=== PATIENT | female | born 1980 | race Asian ===

== ENCOUNTER 2017-06-30 10:33 | Emergency (ER) | payer BC, OTHER ==
[~2017-06-30] VITALS: Wt 75.7 kg
[2017-06-30] MEDS ORDERED: IBUPROFEN 800 MG TAB PO ONE (12:30)
--- NOTE | 2017-06-30 12:36 | RADRPT ---
PROCEDURE: XR Chest. CLINICAL INDICATION: Shortness of breath TECHNIQUE: Single portable view of the chest was obtained COMPARISON: No priors for comparison FINDINGS: The trachea is midline. The cardiac silhouette and pulmonary vascularity are within normal limits. T he lungs are clear. The costophrenic angles are sharp. IMPRESSION: 1. No evidence of acute cardiopulmonary disease. RPTAT: AAPP Physician Barbara Date Time Electronically viewed and signed by Doc Ragland Physician on 06/30/2017 12:35 KATELYNN/
--- NOTE | 2017-06-30 12:39 | ERD ---
ER Documentation Chief Complaint Chief Complaint COUGH, BODYACHES, FEVER, ONSET 3 DAYS HPI This is a 36-year-old female who presents the emergency department today with her complaining of cough, fever, body aches for the past 3 days. States that she took ibuprofen last night. States she also has a headache. Denies any vomiting or diarrhea. States that child has similar symptoms and child was sick first. ROS All systems reviewed and are negative except as per history of present illness. Medications Home Meds Active Scripts Guaifenesin-Dextromethorphan* (Robitussin* DM) 100MG/10MG/5ML Syrup, 10 ML PO Q6H Y for COUGH for 5 Days, ML Prov:MARCIA PINEDAC 06/30/17 Acetaminophen* (Tylophen*) 500 Mg Capsule, 1 CAP PO Q6H Y for PAIN AND OR ELEVATED TEMP, #30 CAP Prov:MARCIA PINEDAC 06/30/17 Ibuprofen* (Motrin*) 600 Mg Tab, 600 MG PO Q6, #30 TAB Prov:MARCIA PINEDAC 06/30/17 Oseltamivir Phosphate* (Tamiflu*) 75 Mg Capsule, 75 MG PO BID for 5 Days, CAP Prov:MARCIA PINEDAC 06/30/17 Allergies Allergies: Coded Allergies: erythromycin base (Verified Allergy, Intermediate, rash, 06/30/17) PMhx/Soc Medical and Surgical Hx: pt denies Medical Hx, pt denies Surgical Hx Hx Alcohol Use: No Hx Substance Use: No Hx Tobacco Use: No Smoking Status: Never smoker Physical Exam Vitals Vital Signs Date Time Temp Pulse Resp B/P Pulse Ox O2 Delivery O2 Flow Rate FiO2 06/30/17 10:39 98.3 86 18 123/77 100 Physical Exam Const: NAD Head: Atraumatic Eyes: Normal Conjunctiva ENT: TMs normal. Nose no drainage. Throat no erythema no exudate. Neck: Full range of motion..~ No meningismus. Resp: Clear to auscultation bilaterally Cardio: Regular rate and rhythm, no murmurs Abd: Soft, non tender, non distended. Normal bowel sounds Skin: No petechiae or rashes Neur: Awake and alert Psych: Normal Mood and Affect Results 24 hrs Current Medications Medications (Trade) Dose Ordered Sig/Leisa Route PRN Reason Start Time Stop Time Status Last Admin Dose Admin Ibuprofen (Motrin) 800 mg ONCE ONCE PO 06/30/17 12:30 06/30/17 12:31 DC 06/30/17 12:15 DIAGNOSTIC IMAGING REPORT Patient: DORA REEDER : 1980 Age: 36 Sex: F MR #: [id number] DOS: 06/30/17 1207 Ordering MD: MARCIA PINEDA PA-C Location: [facility] Room/Bed: PROCEDURE: XR Chest. CLINICAL INDICATION: Shortness of breath TECHNIQUE: Single portable view of the chest was obtained COMPARISON: No priors for comparison FINDINGS: The trachea is midline. The cardiac silhouette and pulmonary vascularity are within normal limits. The lungs are clear. The costophrenic angles are sharp. IMPRESSION: 1. No evidence of acute cardiopulmonary disease. RPTAT: AAPP Physician Barbara Date Time Electronically viewed and signed by Physician Barbara on 06/30/2017 12:35 JL/ CC: MARCIA PINEDA PA-C RUN DATE: 06/30/17 [facility] PAGE 1 RUN TIME: [id number] [place] [address] Adair Giordano M.D. [employer] RAYMOND#: [id number] Name: DORA REEDER Age/Sex: 36/F Attend Dr: CATALINA SCOTT Acct: [id number] MR# : [id number] : 1980 Location: [facility] Admit: 06/30/17 Specimen: [id number] Status: Complete Jesse: 06/30/17 Rcvd: 06/30 Source: [facility]ams Descrip: Procedure Result Microbiology INFLUENZA A & B BY EIA Final INFLU A&B BY EIA INFLUENZA A NEGATIVE (Ref Range Neg) INFLUENZA B NEGATIVE (Ref Range Neg) ................................................................................ ............ Flags: Critical Hi = *H Critical Lo = *L Microbiology Abnormal = * Abnormal Hi = H Abnormal Lo = L Blood Bank Abnormal = * Susceptability Flags: S = Sensitive R = Resistant I = Intermediate END OF REPORT Procedures/MDM This is a 36-year-old female who presents emergency department today for headache, body aches, cough and fever for the past 3 days. She is here in the emergency department in the same room with her son who has similar symptoms. was concerned because he indicated that frequently has a cough is concerned about that therefore I did obtain a chest x-ray and influenza. I do have low suspicion for sepsis, severe acute bacterial infection. Chest x-ray is unremarkable. Low suspicion for pneumonia, PE, abscess, pleural effusion, pneumothorax. Influenza A and B is negative Symptoms at this time is consistent with influenza-like symptoms. Patient's son tested positive for influenza A here in the emergency department and given this I will offer to give the patient a prescription for Tamiflu however explained the risks and benefits of taking it and I will leave it up to them. Patient will also be given a prescription for Tylenol, Motrin, Robitussin. At this time the patient is stable for discharge and outpatient management. Patient should follow up with their PCP in the next 1-2 days. They may return to the emergency department sooner for any persistent or worsening of symptoms. Patient and understood and agreed with the plan. Discussed the patient with Dr. Murphy and she is in agreement with the plan. Departure Diagnosis: Primary Impression: Influenza-like symptoms Condition: MARCIA Stone PA-C Jun 30, 2017 12:39
[2017-06-30] MEDS ORDERED: OSLT75C PO (13:15)
[2017-06-30] MEDS ORDERED: ACET500C5 PO (13:15)
[2017-06-30] MEDS ORDERED: IBUP-1542 PO (13:15)
[2017-06-30] MEDS ORDERED: UDROBDM PO (13:16)
== END 2017-06-30 13:33 | disposition home or self-care (01) ==
LOC: FTE 10:33
DX: R05 Cough (principal); R51 Headache; R50.9 Fever, unspecified
CPT/HCPCS: 71010; 87400; 99284; Z7610

== ENCOUNTER 2017-07-12 11:28 | Emergency (ER) | payer BC ==
[~2017-07-12] VITALS: Ht 157.5 cm; Wt 76.2 kg
[~2017-07-12 11:28] MED LIST: ACET500C5 PO; IBUP-1542 PO; OSLT75C PO; UDROBDM PO
[2017-07-12 11:30] VITALS: Ht 157.5 cm; Wt 76.2 kg
[2017-07-12 14:28] LABS: BASOPHILS % 0.3 % (0.0-2.0); EOSINOPHILS # 0.3 10^3/ul (0.0-0.5); EOSINOPHILS % 4.8 % (0.0-7.0); HEMATOCRIT 32.1 % (37.0-47.0); HEMOGLOBIN 9.9 g/dl (12.0-16.0); LYMPHOCYTES # 2.1 10^3/ul (0.8-2.9); LYMPHOCYTES % 35.9 % (15.0-51.0); MEAN CORPUSCULAR HEMOGLOBIN 22.1 pg (29.0-33.0); MEAN CORPUSCULAR HGB CONC 30.8 g/dl (32.0-37.0); MEAN CORPUSCULAR VOLUME 71.8 fl (82.0-101.0); MEAN PLATELET VOLUME 9.5 fl (7.4-10.4); MONOCYTE # 0.5 10^3/ul (0.3-0.9); MONOCYTES % 8.5 % (0.0-11.0); NEUTROPHIL # 2.9 10^3/ul (1.6-7.5); NEUTROPHILS % 50.3 % (39.0-77.0); PLATELET COUNT 282 10^3/UL (140-415); RED BLOOD COUNT 4.47 10^6/ul (4.20-5.40); WHITE BLOOD COUNT 5.8 10^3/ul (4.8-10.8)
[2017-07-12 14:46] LABS: ADD UMIC YES; UR ASCORBIC ACID NEGATIVE (NEGATIVE); UR BACTERIA FEW /HPF (NONE SEEN); UR BILIRUBIN (Dip) NEGATIVE (NEGATIVE); UR BLOOD (Dip) 1+ mg/dL (NEGATIVE); UR BUDDING YEAST FEW /HPF (NONE SEEN); UR CLARITY CLEAR (CLEAR); UR COLOR STRAW (YELLOW); UR GLUCOSE (Dip) NEGATIVE (NEGATIVE); UR KETONES (Dip) NEGATIVE (NEGATIVE); UR LEUKOCYTE ESTERASE (Dip) 3+ Leu/ul (NEGATIVE); UR NITRITE (Dip) NEGATIVE (NEGATIVE); UR RBC 11 /HPF (0-5); UR SPECIFIC GRAVITY (Dip) 1.006 (1.003-1.030); UR SQUAMOUS EPITHELIAL CELL FEW /HPF (FEW); UR TOTAL PROTEIN (Dip) NEGATIVE (NEGATIVE); UR UROBILINOGEN (Dip) NEGATIVE (NEGATIVE)
[2017-07-12 14:51] LABS: ALBUMIN 4.1 g/dl (3.3-4.9); ALBUMIN/GLOBULIN RATIO 1.41; CALCIUM 8.5 mg/dl (8.4-10.2); CREATININE 0.65 mg/dl (0.44-1.00); POTASSIUM 4.4 mmol/L (3.5-5.1)
--- NOTE | 2017-07-12 14:55 | RADRPT ---
PROCEDURE: Pelvic ultrasound. CLINICAL INDICATION: Pelvic pain TECHNIQUE: Simmons scale, color doppler, spectral doppler ultrasound of the pelvis was performed with transabdominal and transvaginal transducers. COMPARISON: No prior studies are available for comparison. FINDINGS: Uterus: Position: Anteverted. 2.5 cm intramural fibroid of the ventral uterine body abuts the endometrium. Normal appearance of the endometrium. Ovaries: Normal appearing right ovary. Normal appearing left ovary. No adnexal masses. 1.5 cm right ovarian dominant follicle para Free fluid: Trace amount. Measurements: Endometrium (cm): 0.9 Uterus (cm): 9.9 x 5.5 x 7.5 Right ovary (cm): 3.0 x 1.7 x 1.4 Left ovary (cm): 3.2 x 1.4 x 2.0 IMPRESSION: 2.5 cm intramural fibroid of the ventral uterine body abuts the endometrium. Otherwise normal examination. RPTAT: AADD .Dl Hendrickson MD, MD Date Time Electronically viewed and signed by .Dl Hendrickson MD, on 07/12/2017 14:54 .B/
[2017-07-12] MEDS ORDERED: IBUP-1542 PO (15:31)
[2017-07-12] MEDS ORDERED: NITR-58 PO (15:31)
[2017-07-12 15:44] VITALS: BP 127/82; PULSE 83; RESP 16; TEMP 97.9
--- NOTE | 2017-07-12 15:48 | ERD ---
ER Documentation Chief Complaint Chief Complaint LOWER ABD PAIN WITH VOMITING X 1 WEEK HPI 36-year-old female complaining of lower abdominal pain 1 week. Patient states that pain comes and goes, usually lasts about 2 hours each. The pain is sharp, standing up makes the pain worse, sitting down makes it better. Patient reports occasional vomiting in the last week. She took ibuprofen at home for pain, last dose was last night. Patient reports temperature at home 100.3. Patient is , with 2 living children. LMP 05/30/2017. Patient was seen by PCP 2 days ago. Her PCP sent her to the ER for further evaluation. Denies cough or shortness breath. Denies dysuria. Denies vaginal bleeding. Patient has history of appendectomy 20 years ago. ROS All systems reviewed and are negative except as per history of present illness. Medications Home Meds Active Scripts Nitrofurantoin Monohyd Macrocr* (Macrobid*) 100 Mg Capsr, 100 MG PO BID for 7 Days, CAP Prov:LIAN CHAVARRIA. [employer] 07/12/17 Ibuprofen* (Motrin*) 600 Mg Tab, 600 MG PO Q6H Y for PAIN AND OR ELEVATED TEMP, #30 TAB Prov:LIAN CHAVARRIA. [employer] 07/12/17 Guaifenesin-Dextromethorphan* (Robitussin* DM) 100MG/10MG/5ML Syrup, 10 ML PO Q6H Y for COUGH for 5 Days, ML Prov:MARCIA PINEDAC 06/30/17 Acetaminophen* (Tylophen*) 500 Mg Capsule, 1 CAP PO Q6H Y for PAIN AND OR ELEVATED TEMP, #30 CAP Prov:MARCIA PINEDAC 06/30/17 Ibuprofen* (Motrin*) 600 Mg Tab, 600 MG PO Q6, #30 TAB Prov:MARCIA PINEDAC 06/30/17 Oseltamivir Phosphate* (Tamiflu*) 75 Mg Capsule, 75 MG PO BID for 5 Days, CAP Prov:MARCIA PINEDA-C 06/30/17 Allergies Allergies: Coded Allergies: erythromycin base (Verified Allergy, Intermediate, rash, 07/12/17) PMhx/Soc Medical and Surgical Hx: pt denies Medical Hx, pt denies Surgical Hx History of Surgery: Yes (Appendectomy) Hx Alcohol Use: No Hx Substance Use: No Hx Tobacco Use: No Smoking Status: Never smoker Physical Exam Vitals Vital Signs Date Time Temp Pulse Resp B/P Pulse Ox O2 Delivery O2 Flow Rate FiO2 07/12/17 11:30 98.7 92 18 131/89 100 Physical Exam General: Well-developed, well-nourished, conscious and coherent, in no distress Skin: Warm and dry without rash, good texture and turgor Head: Normocephalic without evidence of trauma Eyes: Sclera and conjunctivae normal; pupils equal, round, and reactive to light; extraocular movements are intact Chest: Normal AP diameter. Good expansion without retractions. Nontender. Lungs are clear to auscultate bilaterally with good tidal volume Heart: Regular rate and rhythm. No murmur, rub, or gallops heard Abdomen: Soft, suprapubic and right lower quadrant tenderness without masses , guarding, or rebound. Bowel sounds are active. No hepatosplenomegaly Back: Without spinal or CVA tenderness Extremities: Full range of motion. Good strength bilaterally. No clubbing, cyanosis, or edema. Peripheral pulses are intact. Sensation intact Neuro: Alert and oriented 4, GCS 15. Cranial nerves grossly intact. Motor and sensory exams nonfocal. Moves all extremities. Speech clear. Gait normal Result Diagram: 07/12/17 1420 07/12/17 1420 Results 24 hrs Laboratory Tests Test 07/12/17 14:03 07/12/17 14:20 Urine Color STRAW Urine Clarity CLEAR Urine pH 6.0 Urine Specific [place] 1.006 Urine Ketones NEGATIVEmg/dL Urine Nitrite NEGATIVEmg/dL Urine Bilirubin NEGATIVEmg/dL Urine Urobilinogen NEGATIVEmg/dL Urine Leukocyte Esterase 3+Yamila/ul Urine Microscopic RBC 11/HPF Urine Microscopic WBC 10/HPF Urine Squamous Epithelial Cells FEW/HPF Urine Bacteria FEW/HPF Urine Yeast (Budding) FEW/HPF Urine Hemoglobin 1+mg/dL Urine Glucose NEGATIVEmg/dL Urine Total Protein NEGATIVEmg/dl White Blood Count 5.810^3/ul Red Blood Count 4.4710^6/ul Hemoglobin 9.9g/dl Hematocrit 32.1% Mean Corpuscular Volume 71.8fl Mean Corpuscular Hemoglobin 22.1pg Mean Corpuscular Hemoglobin Concent 30.8g/dl Red Cell Distribution Width 15.0% Platelet Count 33535^3/UL Mean Platelet Volume 9.5fl Neutrophils % 50.3% Lymphocytes % 35.9% Monocytes % 8.5% Eosinophils % 4.8% Basophils % 0.3% Nucleated Red Blood Cells % 0.0/100WBC Neutrophils # 2.910^3/ul Lymphocytes # 2.110^3/ul Monocytes # 0.510^3/ul Eosinophils # 0.310^3/ul Basophils # 0.010^3/ul Nucleated Red Blood Cells # 0.010^3/ul Sodium Level 136mmol/L Potassium Level 4.4mmol/L Chloride Level 102mmol/L Carbon Dioxide Level 24mmol/L Anion Gap 14 Blood Urea Nitrogen 8mg/dl Creatinine 0.65mg/dl Glucose Level 86mg/dl Calcium Level 8.5mg/dl Total Bilirubin 0.0mg/dl Direct Bilirubin 0.00mg/dl Indirect Bilirubin 0.0mg/dl Aspartate Amino Transf (AST/SGOT) 21IU/L Alanine Aminotransferase (ALT/SGPT) 28IU/L Alkaline Phosphatase 55IU/L Total Protein 7.0g/dl Albumin 4.1g/dl Globulin 2.90g/dl Albumin/Globulin Ratio 1.41 Lipase 116U/L Beta HCG, Quantitative < 2.4mIU/ml PROCEDURE: Pelvic ultrasound. CLINICAL INDICATION: Pelvic pain TECHNIQUE: Simmons scale, color doppler, spectral doppler ultrasound of the pelvis was performed with transabdominal and transvaginal transducers. COMPARISON: No prior studies are available for comparison. FINDINGS: Uterus: Position: Anteverted. 2.5 cm intramural fibroid of the ventral uterine body abuts the endometrium. Normal appearance of the endometrium. Ovaries: Normal appearing right ovary. Normal appearing left ovary. No adnexal masses. 1.5 cm right ovarian dominant follicle para Free fluid: Trace amount. Measurements: Endometrium (cm): 0.9 Uterus (cm): 9.9 x 5.5 x 7.5 Right ovary (cm): 3.0 x 1.7 x 1.4 Left ovary (cm): 3.2 x 1.4 x 2.0 IMPRESSION: 2.5 cm intramural fibroid of the ventral uterine body abuts the endometrium. Otherwise normal examination. RPTAT: AADD .Dl Hendrickson MD, Date Time Electronically viewed and signed by .Dl Hendrickson MD, on 07/12/2017 14:54 .B/ CC: LIAN CHAVARRIA [employer] Procedures/MDM Well-appearing 36-year-old female presented ED with intermittent abdominal pain for the last week. CBC, CMP, lipase are unremarkable. UA has 3+ leukocyte, negative nitrite. Patient appears to have a urinary tract infection. I doubt pyelonephritis. Pelvic ultrasound was also obtained, which showed fibroids. A 2.5 cm intramural fibroid. Patient had history of appendectomy. I doubt she has appendicitis. Patient appears well, stable for discharge and outpatient management. Medical decision making shared with patient and family. Education provided to patient and family. Patient and family expressed understanding of the plan. Medications on discharge: Ibuprofen, Macrobid. Follow-up: Primary care provider in 2-3 days or return to ED if worse. Disclaimer: Inadvertent spelling and grammatical errors are likely due to EHR/ dictation software use and do not reflect on the overall quality of patient care. Also, please note that the electronic time recorded on this note does not necessarily reflect the actual time of the patient encounter. Departure Diagnosis: Primary Impression: UTI (urinary tract infection) Urinary tract infection type: acute cystitis Hematuria presence: with hematuria Qualified Code: N30.01 - Acute cystitis with hematuria Additional Impression: Fibroid Uterine leiomyoma location: unspecified location Qualified Code: D25.9 - Uterine leiomyoma, unspecified location Condition: Stable Patient Instructions: What Are Fibroids?, Understanding Urinary Tract Infections (UTIs) Additional Instructions: Call your primary care doctor TOMORROW for an appointment during the next 2-3 days.See the doctor sooner or return here if your condition worsens before your appointment time. LIAN CHAVARRIA NP Jul 12, 2017 15:45
== END 2017-07-12 15:46 | disposition home or self-care (01) ==
LOC: FTE 11:28
DX: N30.01 Acute cystitis with hematuria (principal); D25.9 Leiomyoma of uterus, unspecified; R10.2 Pelvic and perineal pain
CPT/HCPCS: 76830; 76856; 80053; 81001; 83690; 84702; 85025

== ENCOUNTER 2018-06-02 11:20 | Emergency (ER) | END 2018-06-02 15:31 | disposition home or self-care (01) ==